=== PATIENT | female | born 1955 | race Hispanic/Latino ===

== ENCOUNTER 2018-04-30 07:59 | Inpatient (IN) | payer BC ==
[~2018-04-30] VITALS: Ht 157.5 cm; Wt 57.2 kg
[~2018-04-30 07:59] MED LIST: NEXIUM40 MG PO
[2018-04-30 09:35] LABS: BASOPHILS # (AUTO) 0.1 (0.0-0.1); BASOPHILS % 0.9 % (0.0-1.0); EOSINOPHILS % 0.4 % (0.0-6.0); HEMATOCRIT 24.5 % (34.2-44.1); LYMPHOCYTES # (AUTO) 1.7 (1.0-3.2); LYMPHOCYTES % 22.9 % (18.0-39.1); MEAN CORPUSCULAR HEMOGLOBIN 20.5 pg (28-32); MEAN CORPUSCULAR VOLUME 70.8 fL (81-99); MONOCYTES # (AUTO) 0.8 (0.2-0.8); NEUTROPHILS # (AUTO) 4.9 (2.1-6.9); NEUTROPHILS % 64.4 % (38.7-80.0); PLATELET COUNT 473 x10e3/uL (140-360); RED BLOOD COUNT 3.46 x10e6/uL (3.6-5.1); RED CELL DISTRIBUTION WIDTH 18.8 % (11.7-14.4)
[2018-04-30 09:38] LABS: HEMOGLOBIN 7.1 g/dL (12.0-16.0)
[2018-04-30 09:42] LABS: INR 1.05; PROTHROMBIN TIME 12.9 seconds (11.9-14.5)
[2018-04-30 09:49] LABS: ALANINE AMINOTRANSFERASE 16 IU/L (0-55); ALBUMIN 3.6 g/dL (3.5-5.0); ALBUMIN/GLOBULIN RATIO 1.2 (0.8-2.0); ALKALINE PHOSPHATASE 109 IU/L (40-150); ANION GAP 13.5 mmol/L (8-16); BLOOD UREA NITROGEN 7 mg/dL (7-26); BUN/CREATININE RATIO 11 (6-25); CALCIUM 8.8 mg/dL (8.4-10.2); CARBON DIOXIDE 27 mmol/L (22-29); CHLORIDE 107 mmol/L (98-107); CREATININE, SERUM 0.66 mg/dL (0.57-1.11); EST GLOMERULAR FILTRATION RATE > 60 ML/MIN (60-); GLUCOSE 95 mg/dL (74-118); POTASSIUM 3.5 mmol/L (3.5-5.1); SODIUM 144 mmol/L (136-145)
[2018-04-30 09:50] LABS: PARTIAL THROMBOPLASTIN TIME 25.9 seconds (23.8-35.5)
[2018-04-30] MEDS ORDERED: SODIUM CHLORIDE 0.9% 250ML 250 ML IV ONE (10:30)
[2018-04-30] MEDS ORDERED: PROAIR HFA INH8.5 GM PO (12:18)
[2018-04-30] MEDS ORDERED: BREO ELLIPTA INH (12:18)
[2018-04-30] MEDS ORDERED: VIRTUSSIN AC PO (12:18)
[2018-04-30] MEDS ORDERED: DEXAMETHASONE4 MG PO (12:18)
[2018-04-30] MEDS ORDERED: AZITHROMYCIN250 MG PO (12:18)
[2018-04-30] MEDS ORDERED: GENTAMICIN OP (12:18)
[2018-04-30 12:36] VITALS: BP 135/80
[2018-04-30] MEDS ORDERED: SODIUM CHLORIDE 0.9% 250ML 250 ML ONE (12:48)
[2018-04-30 14:16] VITALS: BP 135/80
[2018-04-30 14:20] VITALS: BP 135/80
[2018-04-30 15:19] VITALS: BP 118/64
[2018-04-30 20:00] VITALS: BP 137/65
[2018-04-30 21:06] LABS: HEMATOCRIT 30.1 % (34.2-44.1); HEMOGLOBIN 8.8 g/dL (12.0-16.0)
[2018-04-30 23:37] VITALS: BP 137/65
[2018-05-01] VITALS: BP 138/75
--- NOTE | 2018-05-01 07:14 | History and Physical ---
A 62-year-old female comes in with weakness and symptomatic anemia. HISTORY OF PRESENT ILLNESS: This is Ms. Roma Torres who is a patient of Dr. Mckinney, who was in her usual state of health until 2-3 weeks prior to admission. The patient started to feel extreme fatigue and was seen by Dr. Mckinney. CBC was done and shows hemoglobin of 7.6. The patient was sent here for transfusion. PAST MEDICAL HISTORY: History of anemia, history of reflux esophagitis, history of chronic bronchitis. PAST SURGICAL HISTORY: History of tonsillectomy, hysterectomy. The patient also had a history of exploratory laparotomy for bowel obstruction. SOCIAL HISTORY: Negative for ETOH. Positive for smoking. She is a tube carrier. REVIEW OF SYSTEMS: Negative for chest pain. Positive for extreme fatigue. No nausea, vomiting or diarrhea. No constipation. No rectal bleeding. No hematochezia. No hematemesis. No vaginal bleeding. No bleeding diathesis noted. No purpuric rashes. No diplopia. No blurry vision. No headache either. PHYSICAL EXAMINATION GENERAL: The patient is alert and oriented times 3. HEENT: Normocephalic and atraumatic. Pallor is present. VITALS: Temperature of 98, respirations 20, blood pressure 138/75, pulse oximetry of 97%. CV: S1 and S2 normal. Regular rate and rhythm. ABDOMEN: Nontender and nondistended. EXTREMITIES: No clubbing. No cyanosis. No edema. LABORATORY VALUES: Initial hematology was hemoglobin of 7.1, hematocrit 24.5, and platelet count was 473,000. RDW 18.8, MCV 70, MCH 27 and low indices. Chemistry: Sodium is 144, potassium 3.5, BUN 7, creatinine 0.66. Coags were all normal. IMAGING STUDIES: Chest x-ray showed no acute radiographic abnormalities. CT from 2010 showed on findings either. ASSESSMENT: Symptomatic anemia. PLAN 1. Will be to do a iron level and see if she needs any transfusions. 2. Also, call in consult with Dr. Hernández with a history of reflux esophagitis. Will continue monitoring the patient. Check thyroid levels. Also, guaiac her stools. Further recommendations per clinical course. Will keep her inpatient. Hemoglobin has trended up to 8. Will do a trend tomorrow. Further recommendations per clinical course. Job#: [id number] RI
[2018-05-01 07:45] VITALS: BP 147/67
[2018-05-01 08:39] LABS: FREE THYROXINE INDEX 1.5211 (1.4-3.8); THYROID STIMULATING HORMONE 0.617 uIU/mL (0.350-4.940)
[2018-05-01 08:40] LABS: FERRITIN 11.02 ng/mL (4.63-204.00)
[2018-05-01] MEDS: PANTOPRAZOLE SOD 40 MG TABEC PO SCH (08:46)
[2018-05-01] MEDS ORDERED: METOCLOPRAMIDE HCL 10 MG/2ML VIAL IV ONE ×2 (09:15)
--- NOTE | 2018-05-01 09:36 | Consultation ---
DATE OF CONSULTATION: May 01, 2018 This is a 62 year old who is very well known to me with a history of anemia, history of reflux disease, presented to the hospital because of some abdominal pain, mainly in the epigastric area along with some nausea and vomiting. The patient apparently was found to have significant anemia with a hemoglobin as low as 7.1 with low MCV. She received a blood transfusion. Hemoglobin went up to 8.8. She has a history of acid reflux. She denies any bleeding. She denies any black stool. Her other medical problems are history of anemia, history of reflux disease, status post hysterectomy, tonsillectomy, and exploratory laparotomy for bowel obstruction. ALLERGIES: NONE. SOCIAL HISTORY: No alcohol use. FAMILY HISTORY: Noncontributory. REVIEW OF SYSTEMS: She denies any chest pain. Denies any shortness of breath. Denies any dysphagia or odynophagia. Denies any dysuria or hematuria or any kind of syncopal episodes. PHYSICAL EXAMINATION GENERAL: She is awake, alert and appears to be stable. No acute distress at this point. VITAL SIGNS: Afebrile currently. HEENT: Normocephalic. Sclerae are anicteric. NECK: Supple. HEART: Regular. ABDOMEN: Soft. There is no tenderness at this point. There is some tenderness in the epigastric area. Midline incisional scar noted. EXTREMITIES: No clubbing. LAB VALUES: Significant for hemoglobin today is 8.8. The chemistry was okay. IMPRESSION 1. Abdominal pain. 2. Nausea and vomiting. 3. Iron deficiency anemia. 4. History of reflux disease. RECOMMENDATIONS: Continue on current care at this point. We will proceed with EGD today. Follow labs and clinically. Job#: [id number] RI cc:BECKY URBINA MD
--- NOTE | 2018-05-01 09:37 | Consultation ---
DATE OF CONSULTATION: NO DICTATION, LENGTH 0:11 Job#: [id number] RI
[2018-05-01 10:26] VITALS: BP 147/67
[2018-05-01 11:41] VITALS: BP 130/62
[2018-05-01] MEDS: ALBUTEROL/IPRATROPIUM 3 ML NEB NEB SCH ×2 (13:00→19:40)
[2018-05-01] MEDS: IPRATROPIUM BROMIDE INH SCH ×2 (13:00→19:00)
[2018-05-01 15:25] VITALS: BP 132/64
[2018-05-01 20:00] VITALS: BP 118/60
[2018-05-01] MEDS: SUCRALFATE 1 GM TAB PO SCH (20:27)
[2018-05-01] MEDS: TEMAZEPAM 15 MG CAP PO PRN (21:58)
[2018-05-02] VITALS (7 sets, daily range): BP systolic 107–136; BP diastolic 56–76
[2018-05-02] MEDS: IPRATROPIUM BROMIDE INH SCH ×3 (01:00→19:00)
[2018-05-02] MEDS: ALBUTEROL/IPRATROPIUM 3 ML NEB NEB SCH ×3 (01:10→19:19)
[2018-05-02 06:08] LABS: BASOPHILS # (AUTO) 0.1 (0.0-0.1); BASOPHILS % 0.6 % (0.0-1.0); EOSINOPHILS # (AUTO) 0.1 (0.0-0.4); EOSINOPHILS % 0.5 % (0.0-6.0); HEMATOCRIT 27.8 % (34.2-44.1); HEMOGLOBIN 8.1 g/dL (12.0-16.0); LYMPHOCYTES # (AUTO) 2.9 (1.0-3.2); LYMPHOCYTES % 19.8 % (18.0-39.1); MEAN CORPUSCULAR HEMOGLOBIN 20.7 pg (28-32); MEAN CORPUSCULAR HGB CONC 29.1 g/dL (31-35); MEAN CORPUSCULAR VOLUME 70.9 fL (81-99); MONOCYTES # (AUTO) 1.2 (0.2-0.8); MONOCYTES % 8.4 % (4.4-11.3); NEUTROPHILS # (AUTO) 10.1 (2.1-6.9); NEUTROPHILS % 70.1 % (38.7-80.0); PLATELET COUNT 500 x10e3/uL (140-360); RED BLOOD COUNT 3.92 x10e6/uL (3.6-5.1); RED CELL DISTRIBUTION WIDTH 18.9 % (11.7-14.4)
[2018-05-02 06:32] LABS: ANION GAP 14.5 mmol/L (8-16); BLOOD UREA NITROGEN 10 mg/dL (7-26); BUN/CREATININE RATIO 15 (6-25); CALCIUM 8.7 mg/dL (8.4-10.2); CARBON DIOXIDE 26 mmol/L (22-29); CHLORIDE 103 mmol/L (98-107); CREATININE, SERUM 0.66 mg/dL (0.57-1.11); EST GLOMERULAR FILTRATION RATE > 60 ML/MIN (60-); GLUCOSE 100 mg/dL (74-118); POTASSIUM 3.5 mmol/L (3.5-5.1); SODIUM 140 mmol/L (136-145)
[2018-05-02] MEDS: SUCRALFATE 1 GM TAB PO SCH ×4 (07:59→20:54)
[2018-05-02] MEDS: PANTOPRAZOLE SOD 40 MG TABEC PO SCH (07:59)
[2018-05-02] MEDS ORDERED: IRON DEXTRAN INJ 500 MG in SODIUM CHLORIDE 0.9% 500ML 500 ML IV PRN (10:15)
[2018-05-02] MEDS ORDERED: DIPHENHYDRAMINE HCL INJ 25 MG in SODIUM CHLORIDE 0.9% 50ML 50 ML IV ONE (10:15)
[2018-05-02] MEDS ORDERED: DEXAMETHASONE PHOS 10MG INJ 20 MG in SODIUM CHLORIDE 0.9% 50ML 50 ML IV ONE (10:15)
[2018-05-02] MEDS ORDERED: FAMOTIDINE INJ 20 MG in SODIUM CHLORIDE 0.9% 50ML 50 ML IV ONE (10:15)
[2018-05-02] MEDS ORDERED: IRON DEXTRAN INJ 50 MG in SODIUM CHLORIDE 0.9% 100 ML IV ONE (10:15)
[2018-05-02] MEDS ORDERED: DIATRIZOATE MEGL/DIATRIZOA SOD 30 ML BTL PO ONE (10:30)
[2018-05-02] MEDS ORDERED: SODIUM CHLORIDE 0.9% IV SCH (11:00)
[2018-05-02] MEDS ORDERED: IRON SUCROSE IV SCH (11:00)
[2018-05-02 11:02] LABS: BASOPHILS # (AUTO) 0.1 (0.0-0.1); BASOPHILS % 0.5 % (0.0-1.0); EOSINOPHILS # (AUTO) 0.1 (0.0-0.4); EOSINOPHILS % 0.5 % (0.0-6.0); HEMATOCRIT 29.7 % (34.2-44.1); HEMOGLOBIN 8.7 g/dL (12.0-16.0); LYMPHOCYTES # (AUTO) 2.8 (1.0-3.2); LYMPHOCYTES % 19.4 % (18.0-39.1); MEAN CORPUSCULAR HGB CONC 29.3 g/dL (31-35); MEAN CORPUSCULAR VOLUME 71.6 fL (81-99); MONOCYTES # (AUTO) 1.2 (0.2-0.8); MONOCYTES % 8.6 % (4.4-11.3); NEUTROPHILS % 70.4 % (38.7-80.0); PLATELET COUNT 532 x10e3/uL (140-360); RED BLOOD COUNT 4.15 x10e6/uL (3.6-5.1); RED CELL DISTRIBUTION WIDTH 19.4 % (11.7-14.4)
[2018-05-02] MEDS ORDERED: SODIUM CHLORIDE 0.9% 250ML 250 ML ONE (11:38)
[2018-05-02] MEDS ORDERED: IRON SUCROSE 500 MG in SODIUM CHLORIDE 0.9% 500ML 500 ML IV SCH (12:00)
--- NOTE | 2018-05-02 17:32 | Diagnostic Imaging Report ---
PROCEDURE: CT ABDOMEN AND PELVIS WITH CONTRAST TECHNIQUE: The abdomen and pelvis were scanned utilizing a multidetector helical scanner from the diaphragm to the lesser trochanter after the IV administration of 100 cc of Isovue 370 and the oral administration of dilute Gastrografin. Coronal and sagittal multiplanar reformations were obtained. COMPARISON: Patients [facility], CT, CT ABDOMEN/PELVIS WO, 09/04/2011, 19:17. INDICATIONS: SYMPTOMATIC ANEMIA FINDINGS: LOWER THORAX: Stable cardiomegaly. Minimal left basilar atelectatic changes. HEPATOBILIARY: Diffuse hepatic steatosis. Liver is in the upper limit of normal to borderline enlarged, measuring 15.3 cm in the right mid clavicular line. No focal lesions. No biliary ductal dilation. Gallbladder is unremarkable. SPLEEN: No splenomegaly. PANCREAS: No focal masses or ductal dilatation. ADRENALS: Stable 1.3 x 1.0 cm nodule in the left adrenal gland (series 2, image 19). This nodule measure less than 10 Hounsfield units on previous noncontrast CT 09/04/2011. Right adrenal gland is unremarkable. KIDNEYS/URETERS: No hydronephrosis, stones, or solid mass lesions. Mild right pelvocaliectasis. PELVIC ORGANS/BLADDER: Bladder is unremarkable. Uterus is not visualized. No adnexal masses. PERITONEUM / RETROPERITONEUM: No free air or fluid. LYMPH NODES: No lymphadenopathy. VESSELS: Celiac trunk, superior and inferior mesenteric, and bilateral renal arteries are patent. Portal, superior mesenteric, and splenic veins are patent. GI TRACT: No bowel dilation or evidence of obstruction. No pericolonic inflammatory changes. Stable surgical sutures are noted in the stomach and multiple clips in the proximal small bowel BONES AND SOFT TISSUES: No aggressive lytic lesions. Facet hypertrophy. L4-L5 and right L5-S1. Soft tissues are grossly unremarkable. IMPRESSION: 1. no acute abdominopelvic abnormalities. 2. No bowel dilation or evidence of obstruction. No pericolonic inflammatory changes. Stable postoperative changes in the stomach and small bowel. 3. Liver size is in the upper limit of normal to borderline enlarged. Diffuse hepatic steatosis. 4. Stable cardiomegaly 5. Stable 1.3 cm benign, lipid rich left adrenal adenoma. No further diagnostic or follow up imaging as indicated. Sam Verdin M.D. Dictated by: Sam Verdin M.D. on 05/02/2018 at 17:36 Electronically approved by: Sam Verdin M.D. on 05/02/2018 at 17:36
[2018-05-02] MEDS ORDERED: IRON SUCROSE 500 MG in SODIUM CHLORIDE 0.9% 500ML 500 ML IV ONE (18:30)
[2018-05-02] MEDS: TEMAZEPAM 15 MG CAP PO PRN (21:21)
[2018-05-02] MEDS ORDERED: IOPAMIDOL 370 MG/ML 200 ML INFUS..BTL INJ ONE (21:58)
[2018-05-02] MEDS ORDERED: SODIUM CHLORIDE 0.9% 50ML 50 ML ONE (21:58)
[2018-05-03] VITALS (8 sets, daily range): BP systolic 108–144; BP diastolic 63–74
[2018-05-03] MEDS: ALBUTEROL/IPRATROPIUM 3 ML NEB NEB SCH ×4 (00:15→19:10)
[2018-05-03] MEDS: IPRATROPIUM BROMIDE INH SCH ×4 (01:00→18:42)
[2018-05-03 06:16] LABS: BASOPHILS % 0.1 % (0.0-1.0); HEMATOCRIT 26.4 % (34.2-44.1); HEMOGLOBIN 7.9 g/dL (12.0-16.0); LYMPHOCYTES # (AUTO) 1.3 (1.0-3.2); LYMPHOCYTES % 6.2 % (18.0-39.1); MEAN CORPUSCULAR HEMOGLOBIN 21.5 pg (28-32); MEAN CORPUSCULAR HGB CONC 29.9 g/dL (31-35); MEAN CORPUSCULAR VOLUME 71.9 fL (81-99); MONOCYTES # (AUTO) 1.6 (0.2-0.8); MONOCYTES % 7.5 % (4.4-11.3); NEUTROPHILS % 85.4 % (38.7-80.0); PLATELET COUNT 542 x10e3/uL (140-360); RED BLOOD COUNT 3.67 x10e6/uL (3.6-5.1); RED CELL DISTRIBUTION WIDTH 19.2 % (11.7-14.4)
[2018-05-03 06:46] LABS: ALANINE AMINOTRANSFERASE 14 IU/L (0-55); ALBUMIN 3.4 g/dL (3.5-5.0); ALBUMIN/GLOBULIN RATIO 1.1 (0.8-2.0); ALKALINE PHOSPHATASE 86 IU/L (40-150); ANION GAP 12.8 mmol/L (8-16); BLOOD UREA NITROGEN 11 mg/dL (7-26); BUN/CREATININE RATIO 18 (6-25); CALCIUM 9.2 mg/dL (8.4-10.2); CARBON DIOXIDE 24 mmol/L (22-29); CHLORIDE 105 mmol/L (98-107); CREATININE, SERUM 0.61 mg/dL (0.57-1.11); EST GLOMERULAR FILTRATION RATE > 60 ML/MIN (60-); GLUCOSE 79 mg/dL (74-118); POTASSIUM 3.8 mmol/L (3.5-5.1); SODIUM 138 mmol/L (136-145)
[2018-05-03] MEDS: SUCRALFATE 1 GM TAB PO SCH ×4 (07:46→20:41)
[2018-05-03] MEDS: PANTOPRAZOLE SOD 40 MG TABEC PO SCH (07:46)
[2018-05-03 08:52] LABS: HIV 1&2 AB SCREEN NON-REACTIVE (NONREACTIVE)
--- NOTE | 2018-05-03 09:43 | Diagnostic Imaging Report ---
EXAM: XR CHEST 1 VIEW DATE: 05/03/2018 8:56 AM INDICATION: Cough COMPARISON: None FINDINGS: Lines and Tubes: None Heart and Mediastinum: No acute cardiomediastinal findings. Lungs and Pleura: Bronchial wall thickening and patchy basilar opacities. Bones and Soft Tissues: No acute findings. IMPRESSION: 1. Bronchial wall thickening and patchy infrahilar opacities, suggesting infectious process, likely viral Signed by: Dr. Nikolas Mathis MD on 05/03/2018 9:39 AM
[2018-05-03] MEDS ORDERED: SODIUM CHLORIDE 0.9% 250ML 250 ML ONE (10:54)
[2018-05-03 11:04] LABS: ANISOCYTOSIS SLIGHT; BAND NEUTROPHILS % (MANUAL) 1 %; HYPOCHROMASIA SLIGHT; LYMPHOCYTES % (MANUAL) 10 % (19-48); MICROCYTOSIS SLIGHT; MONOCYTES % (MANUAL) 10 % (3.4-9.0); NEUTROPHILS % (MANUAL) 79 % (40-74); PLATELET ESTIMATE SLIGHTLY INCREASED; PLATELET MORPHOLOGY COMMENT NORMAL; RBC MORPHOLOGY COMMENT NORMAL
[2018-05-03] MEDS: LEVOFLOXACIN 500MG/D5W 100ML 100 ML IV SCH (11:21)
[2018-05-03] MEDS ORDERED: AZITHROMYCIN 500MG/NS 250 ML 250 ML IV SCH (12:30)
[2018-05-03] MEDS: TEMAZEPAM 15 MG CAP PO PRN (20:41)
[2018-05-04] VITALS (7 sets, daily range): BP systolic 111–140; BP diastolic 69–82
--- NOTE | 2018-05-04 00:09 | Consultation ---
DATE OF CONSULTATION: REASON FOR CONSULTATION: Leukocytosis. HISTORY OF PRESENT ILLNESS: This is a very pleasant 62-year-old female who has history of some surgery several years ago probably from peptic ulcer disease with laparotomy and bowel resection. The patient apparently has been having anemia for a while and apparently she was feeling weak. She came to emergency room. Her hemoglobin was 7. I have rechecked again, it was about 7.6. The patient was admitted to get a blood transfusion. Patient came here. She was seen by Dr. Vidales. Patient underwent EGD, showed there is no active bleed. She received iron. It was noted her white count on admission was 14, but today was 21, so I was asked to see her. The patient has some dry cough which she had for a few days. When she came here no specific fever or chills. She is currently lying in bed comfortably. PAST MEDICAL HISTORY: Anemia, reflux esophagitis, and chronic bronchitis. PAST SURGICAL HISTORY: Tonsillectomy, hysterectomy, exploratory laparotomy, and bowel obstruction. ALLERGIES: NKA. SOCIAL HISTORY: There is no drug abuse, alcohol abuse, but she does smoke. REVIEW OF SYSTEMS: At present time HEENT: Negative. PULMONARY: Some dry cough. : Negative. GI: Negative. Otherwise, all within normal limits. LABORATORY DATA: Reviewed since admission. Her white count on admission was 14.4, today 21.05, hemoglobin 7.9, hematocrit 21.9. She has an absolutely granulocytosis 0.16. She had neutrophil of 79 with monocyte of 10. Her culture is still pending. Chest x-ray reviewed maybe infiltrate. Her CT scan of the abdomen and pelvis was negative. PHYSICAL EXAMINATION GENERAL: She is currently alert and oriented. Does not seem to be in acute distress. VITALS: Stable. Currently afebrile. HEENT: She is not icteric. Normocephalic. NECK: Supple. No JVD. No lymphadenopathy. No thyromegaly. CHEST: Clear bilateral. HEART: S1 and S2. No murmur. ABDOMEN: Soft. Bowel sounds are present. No tenderness. EXTREMITIES: No edema or skin rash. IMPRESSION 1. Leukocytosis. I agree with the workup, but I think so far is probably reactive from the iron transfusions. I would suggest to continue with Levaquin. Discontinue azithromycin. 2. Anemia. 3. History of smoking. 4. We will follow. Job#: [id number] [place]
[2018-05-04] MEDS: IPRATROPIUM BROMIDE INH SCH ×4 (00:14→19:00)
[2018-05-04 06:52] LABS: BASOPHILS # (AUTO) 0.1 (0.0-0.1); BASOPHILS % 0.4 % (0.0-1.0); EOSINOPHILS # (AUTO) 0.1 (0.0-0.4); HEMATOCRIT 25.2 % (34.2-44.1); HEMOGLOBIN 7.3 g/dL (12.0-16.0); LYMPHOCYTES # (AUTO) 2.7 (1.0-3.2); MEAN CORPUSCULAR HEMOGLOBIN 21.2 pg (28-32); MEAN CORPUSCULAR VOLUME 73.3 fL (81-99); MONOCYTES # (AUTO) 0.9 (0.2-0.8); MONOCYTES % 8.1 % (4.4-11.3); NEUTROPHILS # (AUTO) 7.4 (2.1-6.9); NEUTROPHILS % 65.2 % (38.7-80.0); PLATELET COUNT 572 x10e3/uL (140-360); RED BLOOD COUNT 3.44 x10e6/uL (3.6-5.1)
[2018-05-04] MEDS ORDERED: SODIUM CHLORIDE 0.9% 250ML 250 ML IV ONE (07:15)
[2018-05-04] MEDS: ALBUTEROL/IPRATROPIUM 3 ML NEB NEB SCH ×4 (07:50→19:13)
[2018-05-04] MEDS: PANTOPRAZOLE SOD 40 MG TABEC PO SCH (08:22)
[2018-05-04] MEDS: SUCRALFATE 1 GM TAB PO SCH ×4 (08:22→21:00)
[2018-05-04] MEDS ORDERED: SODIUM CHLORIDE 0.9% 250ML 250 ML ONE (10:39)
[2018-05-04] MEDS: LEVOFLOXACIN 500MG/D5W 100ML 100 ML IV SCH (11:30)
--- NOTE | 2018-05-04 18:23 | Progress Note ---
DATE: May 04, 2018 Ms. Live is doing better. There are no new complaints. OBJECTIVE VITAL SIGNS: Stable, currently afebrile. Blood pressure is negative. HEENT: She is not icteric. NECK: Supple. CHEST: Clear. HEART: S1 and S2, no murmur. ABDOMEN: Soft. Bowel sounds present. No tenderness. EXTREMITIES: No edema. White count is down to 11. IMPRESSION 1. Leukocytosis, reactive. 2. Maybe viral pneumonia. PLAN: Will discontinue Azithromycin. Continue with Levaquin. Can have 8 days of Levaquin just to be on the safe side. Will follow. Job#: [id number]
[2018-05-04] MEDS: TEMAZEPAM 15 MG CAP PO PRN (22:34)
[2018-05-05] MEDS: ALBUTEROL/IPRATROPIUM 3 ML NEB NEB SCH ×3 (00:05→13:00)
[2018-05-05 00:54] VITALS: BP 110/62
[2018-05-05] MEDS: IPRATROPIUM BROMIDE INH SCH ×3 (01:00→13:00)
[2018-05-05 04:30] VITALS: BP 115/67
[2018-05-05 06:02] LABS: BASOPHILS # (AUTO) 0.1 (0.0-0.1); BASOPHILS % 0.7 % (0.0-1.0); EOSINOPHILS # (AUTO) 0.2 (0.0-0.4); HEMATOCRIT 31.3 % (34.2-44.1); HEMOGLOBIN 9.3 g/dL (12.0-16.0); LYMPHOCYTES # (AUTO) 2.3 (1.0-3.2); LYMPHOCYTES % 22.5 % (18.0-39.1); MEAN CORPUSCULAR HEMOGLOBIN 22.3 pg (28-32); MEAN CORPUSCULAR HGB CONC 29.7 g/dL (31-35); MEAN CORPUSCULAR VOLUME 75.1 fL (81-99); MONOCYTES % 9.3 % (4.4-11.3); NEUTROPHILS # (AUTO) 6.6 (2.1-6.9); NEUTROPHILS % 64.3 % (38.7-80.0); PLATELET COUNT 603 x10e3/uL (140-360); RED BLOOD COUNT 4.17 x10e6/uL (3.6-5.1)
[2018-05-05 06:25] LABS: ANION GAP 10.9 mmol/L (8-16); BLOOD UREA NITROGEN 8 mg/dL (7-26); BUN/CREATININE RATIO 14 (6-25); CALCIUM 8.9 mg/dL (8.4-10.2); CARBON DIOXIDE 27 mmol/L (22-29); CHLORIDE 109 mmol/L (98-107); CREATININE, SERUM 0.59 mg/dL (0.57-1.11); EST GLOMERULAR FILTRATION RATE > 60 ML/MIN (60-); GLUCOSE 85 mg/dL (74-118); POTASSIUM 3.9 mmol/L (3.5-5.1); SODIUM 143 mmol/L (136-145)
[2018-05-05 08:00] VITALS: BP 157/75
[2018-05-05] MEDS: SUCRALFATE 1 GM TAB PO SCH ×2 (08:43→12:06)
[2018-05-05] MEDS: PANTOPRAZOLE SOD 40 MG TABEC PO SCH (08:43)
[2018-05-05 12:00] VITALS: BP 138/83
[2018-05-05] MEDS: LEVOFLOXACIN 500MG/D5W 100ML 100 ML IV SCH (12:06)
== END 2018-05-05 14:10 | disposition home or self-care (01) | DRG 811 ==
LOC: ER 07:59 → ERHOLD 10:25 → OBSVTOIN 10:25 → IMCU 12:28 → MED/SURG 05-03 09:35 → MED/SURG2 05-03 16:09
PROVIDERS: ADMIT Family Medicine; ATTEND Family Medicine
PROC: 0DJ08ZZ Inspection of Upper Intestinal Tract, Via Natural or Artificial Opening Endoscopic (ICD-10-PCS; 2018-05-01)
PROC: 30230N1 Transfusion of Nonautologous Red Blood Cells into Peripheral Vein, Open Approach (ICD-10-PCS; principal; 2018-05-01 18:00)
DX: D64.89 Other specified anemias (principal); J12.9 Viral pneumonia, unspecified; K44.9 Diaphragmatic hernia without obstruction or gangrene
CPT/HCPCS: 36415; 43239; 71045; 74177; 80048; 80053; 82270; 82728; 83540; 84436; 84443; 84466; 84479; 85014; 85018; 85025; 85045; 85610; 85651; 85730; 86140; 86431; 86803; 86850; 86900; 86920; 87040; 87086; 87390; 88305; 88312; 94640; 99284; G0433; G0435; J0456; J1100; J1200; J1756; J1956; J2765; J7040; J7050; P9016; Q9967

== ENCOUNTER → 2018-08-18 | Outpatient (CLI) | payer BC ==
[~2018-08-18] MED LIST changes: +AZITHROMYCIN250 MG PO; +BREO ELLIPTA INH; +DEXAMETHASONE4 MG PO; +GENTAMICIN OP; +PROAIR HFA INH8.5 GM PO; +VIRTUSSIN AC PO
--- NOTE | 2018-08-18 16:32 | Diagnostic Imaging Report ---
EXAM: US ABDOMEN COMPLETE DATE: 08/18/2018 3:22 PM Indication: Elevated liver function tests COMPARISON: None TECHNIQUE: Transverse and longitudinal álvarez scale and color doppler sonographic images of the upper abdomen were obtained. FINDINGS: LIVER 15.3 cm in the right midclavicular line. Normal echogenicity, normal contour. Questionable ovoid hyperechoic lesion in the central aspect of the right lobe measuring 1.6 x 2.5 x 1.5 cm. No definite lesion was identified in this area of the liver on comparison CT 05/02/2018. SPLEEN 7.5 cm in maximum diameter. Normal echogenicity, no masses. GALLBLADDER No stones, sludge, wall-thickening or pericholecystic fluid. Negative sonographic Hamilton's sign. BILE DUCTS No intra nor extra-hepatic biliary dilation. Common bile duct measures 0.6 cm PANCREAS: Visualized portions are normal. RIGHT KIDNEY: 9.3 cm Echogenicity: Normal Collecting System: No hydronephrosis Stones: None Cyst/Mass: None LEFT KIDNEY: 10 cm Echogenicity: Normal Collecting System: No hydronephrosis Stones: None Cyst/Mass: None VESSELS: Aorta: Nonaneurysmal Inferior Vena Cava: Patent Main Portal Vein: 0.8 cm, normal size with hepatopetal flow. FREE FLUID: None IMPRESSION: Questionable 2.5 cm hyperechoic lesion in the central liver was not definitively identified on single phase contrast-enhanced comparison CT 05/02/2018 . This may represent an area of focal fatty infiltration, though the differential diagnosis includes hemangioma. Further characterization with MRI of the abdomen with and without contrast (liver mass protocol) is suggested. Otherwise unremarkable abdominal ultrasound. Signed by: Dr. Vasquez Calix M.D. on 08/18/2018 4:29 PM
== END ==
LOC: US 15:12
PROVIDERS: ATTEND Family Medicine
DX: R94.5 Abnormal results of liver function studies (principal)
CPT/HCPCS: 76700

== ENCOUNTER → 2019-02-16 | Outpatient (CLI) | payer BC ==
--- NOTE | 2019-02-16 16:44 | Diagnostic Imaging Report ---
EXAMINATION: CHEST 2 VIEWS INDICATION: Pneumonia. COMPARISON: Chest radiograph 05/03/2018. FINDINGS: TUBES and LINES: None. LUNGS: The lungs are well inflated. There is patchy consolidation in the right lower lung. There is bilateral bronchial wall thickening. PLEURA: No pleural effusion or pneumothorax. HEART AND MEDIASTINUM: The cardiomediastinal silhouette is unremarkable. BONES AND SOFT TISSUES: No acute osseous abnormality. UPPER ABDOMEN: No free air under the diaphragm. IMPRESSION: Patchy consolidation in the right lower lung, consistent with clinical history of pneumonia. Suggest follow-up chest radiograph in 6-8 weeks to assess for resolution. Bilateral bronchial wall thickening, which may reflect bronchitis. Signed by: Dr. Jose Carlos Small MD on 02/16/2019 4:40 PM
== END ==
LOC: RAD 15:45
PROVIDERS: ATTEND Otolaryngology
DX: J18.9 Pneumonia, unspecified organism (principal)
CPT/HCPCS: 71046